=== PATIENT | female | born 1975 | race Caucasian/White ===

== ENCOUNTER → 2022-06-17 10:50 | Outpatient (CLI) | payer OTHER, MEDICAID, SELFPAY ==
[2022-06-17 20:23] LABS: Add Manual Diff / Slide Review NO; Basophils Absolute Auto 100 /uL (0-100); Basophils Percent Auto 0.8 % (0-2); Eosinophils Absolute Auto 300 /uL (0-450); Eosinophils Percent Auto 5.6 % (2-4); Hematocrit 40.1 % (36-46); Hemoglobin 13.5 g/dL (12.0-16.0); Lymphocytes Absolute Auto 2400 /uL (1100-4500); Lymphocytes Percent Auto 38.8 % (25-40); Mean Corpuscular HGB Conc 33.6 % (30-36); Mean Corpuscular Hemoglobin 29.2 PG (26-34); Mean Corpuscular Volume 86.8 fL (80-100); Monocytes Absolute Auto 400 /uL (0-900); Monocytes Percent Auto 7.3 % (3-14); Neutrophils Absolute Auto 2900 /uL (1500-7000); Neutrophils Percent Auto 47.5 % (50-75); Platelet Count 421 X10^3/uL (150-400); Red Blood Cell Count 4.62 X10^6/uL (4.0-5.2); Red Cell Distribution Width 13.9 % (11.6-14.8); White Blood Cell Count 6.1 X10^3/uL (4.5-11.0)
[2022-06-17 21:04] LABS: Alanine Aminotransferase 12 IU/L (<35); Albumin 4.2 g/dL (3.5-5.0); Albumin Globulin Ratio 1.2 (1.0-2.8); Alkaline Phosphatase 63 U/L (38-126); Aspartate Aminotransferase 21 IU/L (14-36); BUN Creatinine Ratio 12.9 (6-22); Bilirubin Total 0.5 mg/dL (0.2-1.3); Blood Urea Nitrogen 11 mg/dL (7-17); Calcium 9.3 mg/dL (8.4-10.2); Carbon Dioxide 24 mmol/L (22-32); Chloride 98 mmol/L (98-107); Cholesterol 256 mg/dL (140-199); Estimated Glomerular Filt Rate > 60 mL/min (>60); Globulin 3.6 g/dL (1.7-4.1); Glucose 85 mg/dL (70-100); HDL Cholesterol 54 mg/dL (40-60); HEMOLYSIS 23 (0-50); LDL Cholesterol Calculated 176 mg/dL (<100); Potassium 4.1 mmol/L (3.4-5.1); Sodium 135 mmol/L (137-145); Total Protein 7.8 g/dL (6.3-8.2); Triglycerides 130 mg/dL (35-150)
[2022-06-17 21:30] LABS: TSH w/ Reflex to FT4 1.63 uIU/mL (0.47-4.68)
== END ==
PROVIDERS: PCP Physician Assistant; Visit Provider Physician Assistant
DX: E78.5 Hyperlipidemia, unspecified (principal); F32.1 Major depressive disorder, single episode, moderate; F41.9 Anxiety disorder, unspecified
CPT/HCPCS: 80053; 80061; 84443; 85025

== ENCOUNTER 2023-01-07 17:02 | Emergency (ER) | payer OTHER, MEDICAID, SELFPAY ==
[2023-01-07] VITALS (20 sets, daily range): BP systolic 128–163; BP diastolic 64–110; PULSE 67–103; RESP 13–21; TEMP 36.7–37.1; O2SAT 91–100; BMI 31.1
--- NOTE | 2023-01-07 17:06 | DI.RAD.S_ITS ---
PROCEDURE: XR WRIST RT MIN 3V INDICATIONS: fall with deformity TECHNIQUE: 4 views of the wrist were acquired. COMPARISON: None. FINDINGS: Bones: There is a comminuted, intra-articular fracture seen of the distal radius, with impaction and dorsal angulation of the fracture fragments in relation to the radial shaft. There is a moderately displaced ulnar styloid fracture seen. No radiocarpal dislocation can be seen. Soft tissues: No suspicious soft tissue calcifications. IMPRESSION: Comminuted distal radius fracture, with impaction, intra-articular involvement, and dorsal angulation of the fracture fragments. A moderately displaced ulnar styloid fracture is also seen. Dictated by: Margarito Acosta M.D. on 01/07/2023 at 16:44 Approved by: Margarito Acosta M.D. on 01/07/2023 at 16:45
--- NOTE | 2023-01-07 17:14 | ED_ITS ---
HPI - General Adult General Chief complaint: Extremity Injury, Upper Stated complaint: R forearm fx Time Seen by Provider: 01/07/23 17:06 History of Present Illness HPI narrative: 47-year-old female with noncontributory medical history is a nonsmoker presents by air medical transport for evaluation of a ground level fall resulting in a right wrist injury. She was in her normal state of health and fell out of the back of a truck onto a right wrist. She has obvious deformity and significant pain with any attempts at range of motion. She denies any numbness, tingling or weakness. She has no head, neck or back pain. She denies any chest pain or shortness of breath. She denies nausea, vomiting or diarrhea. She states she is relatively comfortable when she sits still and has significant pain with attempts at range of motion. She was given fentanyl 100 mcg EN route and splin tiffany by EMS. Related Data Home Medications Medication Instructions Recorded Confirmed selenium sulfide 2.5 % lotion See Rx Instructions topical 2XW 04/20/21 06/24/22 Previous Rx's Medication Instructions Recorded norethindrone 1 mg-ethinyl 1 tab PO DAILY #84 tabs 06/11/22 estradiol 35 mcg tablet (Pirmella) fluoxetine 40 mg capsule See Rx Instructions .Route 12/10/22 .COMPLEX #90 caps hydrocodone 5 mg-acetaminophen 325 1 tab PO Q4-6H PRN pain #30 tabs 01/07/23 mg tablet hydrocodone 5 mg-acetaminophen 325 1 tab PO Q6H PRN pain #10 tabs 01/07/23 mg tablet ondansetron 4 mg disintegrating 4 mg PO TID-QID PRN nausea and 01/07/23 tablet vomiting #10 tabs hydrocodone 5 mg-acetaminophen 325 1 tab PO Q4-6H PRN pain #30 tabs 01/08/23 mg tablet ondansetron 4 mg disintegrating 4 mg PO TID-QID PRN nausea and 01/08/23 tablet vomiting #10 tabs Allergies Allergy/AdvReac Type Severity Reaction Status Date / Time No Known Drug Allergies Allergy Verified 01/07/23 17:52 Review of Systems Review of Systems Narrative: GENERAL: Denies chills, fatigue, malaise, fever, sweats. HEENT: Denies sinus pain, ear pain, sore throat, difficulty swallowing, dizziness. RESPIRATORY: Denies dyspnea, cough, wheezing, hemoptysis, sputum. CARDIOVASCULAR: Denies chest pain, palpitations, orthopnea, edema, GASTROINTESTINAL: Denies nausea, vomiting, abdominal pain, diarrhea, constipation, melena. : Denies dysuria, frequency, incontinence, hematuria, urinary retention. MUSCULOSKELETAL: See HPI SKIN: Denies rash, skin lesions, or other NEUROLOGIC: Denies weakness, headache, numbness, change in speech, confusion, seizures, incoordination. PSYCHIATRIC: No concerning psychosocial issues. 12 point review of systems is negative except for those stated above Patient History Medical History Anxiety Family history of adverse response to anesthesia in sister Hyperlipidemia MDD (major depressive disorder), recurrent episode, mild Nausea Rotator cuff tendonitis Social History Smoking Status: Never smoker Smoking Status: Never smoker Exam Narrative Exam Narrative: GENERAL: [47] year old patient appears stated age. Well-developed patient, in mild distress. HEAD: Atraumatic. Normocephalic. EYES: Pupils equal round and reactive. Extraocular motions intact. No scleral icterus. No injection or drainage. ENT: Nose without bleeding, purulent drainage. Throat without erythema, tonsillar hypertrophy or exudate. Airway patent. NECK: Trachea midline. Non tender CARDIOVASCULAR: Regular rate and rhythm without murmurs, gallops, or rubs. RESPIRATORY: Clear to auscultation. Breath sounds equal bilaterally. No wheezes, rales, or rhonchi. GASTROINTESTINAL: Abdomen soft, non-tender, nondistended. EXTREMITIES: Obvious deformity of right wrist suggestive of distal radius fracture, this is closed, isolated and neurovascularly intact. Forearm compartments are soft, no pain in elbow or shoulder. BACK: Nontender without deformity or crepitance. No flank tenderness. NEURO: AOx3. SKIN: No rash or erythema of visible areas Initial Vital Signs Initial Vital Signs: Vital Signs Temperature 98.1 F 01/07/23 17:05 Pulse Rate 81 01/07/23 17:05 Respiratory Rate 18 01/07/23 17:05 Blood Pressure 154/88 H 01/07/23 17:05 Pulse Oximetry 99 01/07/23 17:05 Oxygen Delivery Method Room Air 01/07/23 17:05 Procedures Orthopedic Fracture Reduction Fracture #1: Time Out Performed: Yes Side: right Fracture Reduction Location: radius and ulna Analgesia: procedural sedation Technique: direct manipulation and traction/counter-traction Orthopedic Splinting/Casting Injury #1: Side: right Upper Extremity Injury Location: wrist Upper Extremity Immobilizer: sling/shoulder immobilizer and sugar tong splint Post splinting neuro exam: intact Post splinting vascular exam: intact Placed by: Provider Procedural Sedation Consent signed: Yes Time out performed: Yes ASA Class: II Mallampati Airway Classification: Class II Preparation: supervisor fertilizer applied, pulse oximeter, capnometry used, supplemental O2 applied, suction/airway equipment at bedside and IV secured IV Propofol dose (mg): 130 Intraservice time/total sedation time (min): 12 ED Sedation Level: Moderate (Concious) Patient Tolerated Procedure: No complications Complications: none Course Orders Ordered: Discontinued Medications Propofol (Propofol 200 Mg/20 Ml Vial) 200 mg IV NOW ONE Stop: 01/07/23 17:07 Last Admin: 01/07/23 18:05 Dose: 130 mg Documented By: [facility] Vital Signs Vital signs: Vital Signs - 8 hr 01/07/23 17:05 Temperature 98.1 F Pulse Rate 81 Respiratory Rate 18 Blood Pressure 154/88 H Pulse Oximetry 99 Oxygen Delivery Method Room Air Medical Decision Making [facility] Narrative Medical decision making narrative: [47] year old patient presents with ground level fall and resultant right wrist injury Multiple etiologies for patient's symptoms considered including, but not limited to: [Fracture, dislocation versus other] Prior Charts reviewed in our EMR Primary Historian: patient Imaging reviewed: Initial x-ray demonstrates comminuted and dorsally angulated as well as impacted right distal radius fracture with ulnar involvement Consultations: Patient's symptoms improved over duration of stay with above-stated therapies. Findings and discharge diagnosis discussed with patient/family followed by verbalization of understanding Return precautions discussed with patient/family whom verbalize understanding of diagnosis and plan Discharge Plan Departure Patient Disposition: Home Clinical Impression: Closed fracture distal radius and ulna Instructions: DI for Distal Radius Fracture Activity Restrictions/Additional Instructions: *You have been diagnosed with [distal radius fracture with comminution and articular involvement] *What to do: *Please continue to take your regular medications as directed. [x ] New medication prescriptions sent to your pharmacy: [[facility] ] [ ] New medication written as a paper prescription [x] Tylenol and occasional Motrin for pain *Please follow up with [Olga ] of [facility] in 2-3 days, call for an appointment. Let them know you were seen in the Emergency Department and that we ask that you be seen in follow up. We will electronically transmit a record of today's note if your PCP is in our system *Return to Emergency Department if you should have any new, worsening or concerning symptoms, such as [worsening pain, significant swelling, cold extremities, numbness, tingling, weakness or other bothersome symptoms Splint Care: Keep splint clean and dry. Elevated affected body part to decrease swelling. OK to use ice pack on the affected body part. Use for 15-20 minutes each time, for 5-6x per day. If you develop worsening pain, numbness, tingling, discoloration of the affected body part, loosen the splint by loosening the MEGHANA wrap, and either see your doctor for an urgent re-assessment, or return to the Emergency Department. Return to the Emergency Department for any new or worsening symptoms. You have been prescribed a short course of narcotic medications. These are potentially dangerous and addictive medications that should be used carefully. While on these medications you cannot drive or operate heavy machinery. Additionally, you cannot sign legal documents or perform any duties such as this. Many people get constipated on narcotic medications so it would be advisable to discuss stool softeners with the pharmacist when you potato picker your prescription. Please understand that we cannot provide further refills of narcotics or controlled substances through the ED and your pain management will need to be through your Primary Care Provider Prescriptions: New hydrocodone-acetaminophen 5-325 mg tablet 1 tab PO Q4-6H PRN (Reason: pain) Qty: 30 0RF ondansetron 4 mg tablet,disintegrating 4 mg PO TID-QID PRN (Reason: nausea and vomiting) Qty: 10 0RF hydrocodone-acetaminophen 5-325 mg tablet 1 tab PO Q6H PRN (Reason: pain) Qty: 10 0RF hydrocodone-acetaminophen 5-325 mg tablet 1 tab PO Q4-6H PRN (Reason: pain) Qty: 30 0RF ondansetron 4 mg tablet,disintegrating 4 mg PO TID-QID PRN (Reason: nausea and vomiting) Qty: 10 0RF No Action selenium sulfide 2.5 % lotion See Rx Instructions TOP 2XW Rx Instructions: 2.5% topical twice a week; Apply topically two times a week Pirmella 1-35 mg-mcg tablet 1 tab PO DAILY Qty: 84 4RF fluoxetine 40 mg capsule See Rx Instructions .ROUTE .COMPLEX Qty: 90 4RF Dose Instruction: TAKE ONE CAPSULE BY MOUTH EVERY DAY Rx Instructions: TAKE ONE CAPSULE BY MOUTH EVERY DAY Referrals: Li Sevilla PA-C [Primary Care Provider] - Constantin Espinoza MD [Physician] - Stand Alone Forms: Patient Portal/API
[2023-01-07] MEDS: propofoL 200 MG/20 ML VIAL IV (18:05)
--- NOTE | 2023-01-07 18:11 | DI.RAD.S_ITS ---
PROCEDURE: XR WRIST RT 2V INDICATIONS: post reduction TECHNIQUE: 2 views of the wrist were acquired. COMPARISON: [facility], CR, XR WRIST RT MIN 3V, 01/07/2023, 17:10. FINDINGS: Bones: Status post splinting of comminuted, displaced distal right radial fracture with intra-articular extension as well as displaced distal ulnar styloid tip fracture. Post reduction alignment appears improved. Soft tissues: No suspicious soft tissue calcifications. IMPRESSION: Status post interval splinting of known comminuted distal right radial fracture and distal ulnar styloid tip fracture in improved alignment. Dictated by: Adonis Mcnally M.D. on 01/07/2023 at 18:48 Approved by: Adonis Mcnally M.D. on 01/07/2023 at 18:49
== END 2023-01-07 19:55 | disposition home or self-care (01) ==
PROVIDERS: Emergency Provider Emergency Medicine; PCP Physician Assistant
DX: S52.501A Unspecified fracture of the lower end of right radius, initial encounter for closed fracture (principal); S52.201A Unspecified fracture of shaft of right ulna, initial encounter for closed fracture; W18.30XA Fall on same level, unspecified, initial encounter
CPT/HCPCS: 25605; 29125; 73100; 73110; 99152; 99284; J2704

== ENCOUNTER 2023-01-13 08:35 | Day surgery (SDC) | payer OTHER, MEDICAID, SELFPAY ==
[2023-01-13] VITALS (10 sets, daily range): BP systolic 150–164; BP diastolic 92–117; PULSE 84–100; RESP 10–17; TEMP 36.4–36.8; O2SAT 88–100; BMI 31.4
[2023-01-13] MEDS: LACTATED RINGERS 1,000 ML 42 ML IV (10:32)
--- NOTE | 2023-01-13 11:50 | PM.PREOP ---
Pre-operative Note Interval Note History & Physical reviewed/Exam performed by Physician: Yes Changes to H&P: No
--- NOTE | 2023-01-13 11:51 | PM.HP.1 ---
History of Present Illness History of Present Illness Date Patient Seen: 01/13/23 Time Patient Seen: 11:40 Chief complaint: ORIF of Right Distal Radius Fx Narrative: 47-year-old female fell getting out of pickup truck landing on her outstretched right arm sustaining displaced intra-articular distal radius fracture. Patient denies any other injuries from fall. [facility] Medical History Anxiety Family history of adverse response to anesthesia in sister Hyperlipidemia MDD (major depressive disorder), recurrent episode, mild Nausea Rotator cuff tendonitis Social History household members: spouse Smoking Status: Never smoker Meds Home Medications and Allergies Home Medications Medication Instructions Recorded Confirmed Type norethindrone 1 mg-ethinyl 1 tab PO DAILY #84 tabs 06/11/22 01/13/23 Rx estradiol 35 mcg tablet (Pirmella) fluoxetine 40 mg capsule See Rx Instructions .Route 12/10/22 01/13/23 Rx .COMPLEX #90 caps hydrocodone 5 mg-acetaminophen 325 1 tab PO Q4-6H PRN pain #30 tabs 01/08/23 01/13/23 Rx mg tablet ondansetron 4 mg disintegrating 4 mg PO TID-QID PRN nausea and 01/08/23 Rx tablet vomiting #10 tabs Allergies Allergy/AdvReac Type Severity Reaction Status Date / Time No Known Drug Allergies Allergy Verified 01/07/23 17:52 Exam Vital Signs (past 8 hours): - 01/13/23 10:27 Temperature 98.3 F Pulse Rate 94 H Respiratory Rate 17 Blood Pressure 160/100 H Pulse Oximetry 100 Oxygen Delivery Method Room Air Oxygen Delivery Method Room Air Narrative Exam Narrative: Patient is in a long-arm splint immobilizing both the elbow wrist. The patient is able flex and extend the fingers. Sensation is intact to light touch. Ulnar median and radial nerve intact to both motor and sensory function. Flexion and extensor mechanisms are intact. Brisk cap refill. No difficulty moving the shoulder. Nontender to palpation of the upper arm. Assessment & Plan Assessment & Plan narrative: Patient with a displaced intra-articular distal radius fracture. Due to the injury I would recommend surgical fixation. Went over the particular risks and limitations associated with the procedure. All of her questions and concerns were answered to her full satisfaction and consent form was freely obtained. The risk, benefits, alternatives, possible complications, operative course, and postop outcomes were discussed. Complications including but not limiting to bleeding, infection, fracture, nerve injury, continued pain postoperatively or instability postoperatively were discussed in detail. Medical complications including but not limited to deep venous thrombosis event, anesthesia complications with excessive bleeding, vascular events or cardiac events and other possible complications were discussed in detail. Need for postoperative rehabilitation and anticipated hospital stay and clinical course were discussed in detail. Patient acknowledges understanding and elects to proceed with surgery.
[2023-01-13] MEDS: CEFAZOLIN 2 GM/100 ML PREMIX 100 ML IV (12:03)
--- NOTE | 2023-01-13 12:31 | SUR.OPER ---
Supine on padded OR bed, head on pillow, right arm secured on wide padded arm board. Left arm secured on padded arm board at <90 degrees abduction, legs uncrossed, safety belt at thigh, tape over blanket over lower legs.
[2023-01-13] MEDS: BUPIVACAINE 0.25% (PF) 30 ML, EPINEPHrine 0.15 MG INJ (13:20)
--- NOTE | 2023-01-13 13:32 | P.OP_ITS ---
Operative Date/Time/Diagnoses Date of procedure: 01/13/23 Time of procedure: 12:15 Pre-op diagnosis: Right intra-articular distal radius fracture Post-op diagnosis: same Procedure & Clinicians Procedure: Open reduction internal fixation of a intra-articular distal radius fracture Same procedure as scheduled: Yes Indications: Comminuted displaced intra-articular distal radius fracture Surgeon: Constantin Espinoza Click Yes if Unassisted: Yes Anesthesia Type: General Operative Notes Findings: Displaced intra-articular distal radius fracture with 3 or more fragments. No sign of any carpal injury. Closure Type: primary Applied: implant(s) (Arthrex distal radius plate) Estimated Blood Loss (mL): 5 Tourniquet time (min): 63 Procedure in detail: On date of service, patient was met in the holding area where the operative site was signed and witnessed by the OR staff. The surgery was once again discussed with the patient and any remaining questions or concerns were answered to the patient's full satisfaction. Time-out was performed verifying patient's name procedure and operative site. Patient was taken back to the operating theater and placed on the operating table in a supine position. Great care was taken to ensure that all bony prominences were appropriately padded. Well-padded tourniquet was placed up along the upper extremity. Another time-out was performed verifying patient's name, procedure, and operative site. The upper extremity was then prepped and draped in the normal sterile fashion. Esmarch was used to exsanguinate the limb and the tourniquet was turned up to 250 mm of mercury. Fifteen blade was used to expose the distal radius. An incision was made over the FCR tendons. The FCR tendon was retracted and the floor of the tendon was opened with a 15 blade. The FPL tendon and muscle belly was retracted ulnarly giving us good visualization of the pronator quadratus. The pronator quadratus was excised off the distal radius using the 15 blade and then finished with a periosteal elevator. Next the brachia radialis attachment to the radial styloid was released to help with overall reduction. Retractors were placed allowing us good visualization of the distal radius as well as the shaft. A reduction eddie uver was performed and a K-wire was placed holding a provisional reduction of the intra-articular distal radius fracture. C-arm was brought in to verify overall reduction. Once we were satisfied with the overall reduction, a plate was placed and held provisionally with K-wires. C-arm was once again used to verify plate positioning as well as reduction. The plate was then fixated to the distal fragment using locking screws. Lateral C-arm views were used to verify that the screws were not intra-articular or broaching the dorsal cortex. At this point we are able to use the plate to help fine tune the overall reduction. Once we were satisfied with the overall reduction the plate was then secured to the shaft with a combination of locking and nonlocking screws. Final x-rays were obtained. The wound was copiously irrigated and closed in a layered fashion. The wrist and hand were cleaned dried dressed. Patient was placed into a splint and taken to the PACU in stable condition. Complications: none Post-operative Condition: stable Disposition: PACU Plan for aftercare: After few days patient can be converted over to a removable splint. There is no restrictions to range of motion of the wrist or the fingers 48 hours after surgery.
[2023-01-13] MEDS: hydrOXYzine pamoate 25 MG CAPSULE PO (13:57)
[2023-01-13] MEDS: ACETAMINOPHEN 325 MG TABLET 650 MG PO (13:58)
[2023-01-13] MEDS: OXYCODONE IR 5 MG TABLET PO (13:58)
== END 2023-01-13 14:57 | disposition home or self-care (01) ==
PROVIDERS: PCP Physician Assistant; Referring Provider Orthopaedic Surgery; Visit Provider Orthopaedic Surgery
PROC: (CPT 25609; principal; 2023-01-13 11:45)
DX: S52.571A Other intraarticular fracture of lower end of right radius, initial encounter for closed fracture (principal); S52.611A Displaced fracture of right ulna styloid process, initial encounter for closed fracture; W01.198A Fall on same level from slipping, tripping and stumbling with subsequent striking against other object, initial encounter
CPT/HCPCS: 25609; C1713; J0171; J0690; J1100; J1170; J2250; J2405; J2704; J3010

== ENCOUNTER → 2023-02-10 10:39 | Outpatient (CLI) | payer OTHER, MEDICAID, SELFPAY ==
[2023-02-10 20:02] LABS: Add Manual Diff / Slide Review NO; Basophils Absolute Auto 100 /uL (0-100); Basophils Percent Auto 0.9 % (0-2); Eosinophils Absolute Auto 300 /uL (0-450); Eosinophils Percent Auto 4.1 % (2-4); Hematocrit 36.5 % (36-46); Hemoglobin 12.5 g/dL (12.0-16.0); Lymphocytes Absolute Auto 2000 /uL (1100-4500); Lymphocytes Percent Auto 29.6 % (25-40); Mean Corpuscular HGB Conc 34.2 % (30-36); Mean Corpuscular Hemoglobin 29.9 PG (26-34); Mean Corpuscular Volume 87.3 fL (80-100); Monocytes Absolute Auto 800 /uL (0-900); Monocytes Percent Auto 11.1 % (3-14); Neutrophils Absolute Auto 3700 /uL (1500-7000); Neutrophils Percent Auto 54.3 % (50-75); Platelet Count 321 X10^3/uL (150-400); Red Blood Cell Count 4.18 X10^6/uL (4.0-5.2); Red Cell Distribution Width 14.6 % (11.6-14.8); White Blood Cell Count 6.8 X10^3/uL (4.5-11.0)
[2023-02-10 20:09] LABS: Alanine Aminotransferase 18 IU/L (<35); Albumin 4.1 g/dL (3.5-5.0); Albumin Globulin Ratio 1.2 (1.0-2.8); Alkaline Phosphatase 55 U/L (38-126); Aspartate Aminotransferase 19 IU/L (14-36); BUN Creatinine Ratio 13.9 (6-22); Bilirubin Total 0.6 mg/dL (0.2-1.3); Blood Urea Nitrogen 11 mg/dL (7-17); Calcium 9.1 mg/dL (8.4-10.2); Carbon Dioxide 22 mmol/L (22-32); Chloride 102 mmol/L (98-107); Cholesterol 208 mg/dL (140-199); Estimated Glomerular Filt Rate > 60 mL/min (>60); Globulin 3.4 g/dL (1.7-4.1); Glucose 94 mg/dL (70-100); HDL Cholesterol 58 mg/dL (40-60); HEMOLYSIS < 15 (0-50); LDL Cholesterol Calculated 120 mg/dL (<100); Potassium 4.4 mmol/L (3.4-5.1); Sodium 132 mmol/L (137-145); Total Protein 7.5 g/dL (6.3-8.2); Triglycerides 151 mg/dL (35-150)
== END ==
PROVIDERS: PCP Physician Assistant; Visit Provider Physician Assistant
DX: Z79.899 Other long term (current) drug therapy (principal); E78.5 Hyperlipidemia, unspecified
CPT/HCPCS: 80053; 80061; 85025

== ENCOUNTER → 2024-01-13 09:04 | Outpatient (CLI) | payer OTHER, SELFPAY ==
[2024-01-13 19:23] LABS: Add Manual Diff / Slide Review NO; Basophils Absolute Auto 0 /uL (0-100); Basophils Percent Auto 0.7 % (0-2); Eosinophils Absolute Auto 300 /uL (0-450); Eosinophils Percent Auto 4.5 % (2-4); Hematocrit 42.9 % (36-46); Hemoglobin 14.4 g/dL (12.0-16.0); Lymphocytes Absolute Auto 2800 /uL (1100-4500); Lymphocytes Percent Auto 40.4 % (25-40); Mean Corpuscular HGB Conc 33.6 % (30-36); Mean Corpuscular Hemoglobin 28.8 PG (26-34); Mean Corpuscular Volume 85.8 fL (80-100); Monocytes Absolute Auto 700 /uL (0-900); Neutrophils Absolute Auto 3100 /uL (1500-7000); Neutrophils Percent Auto 44.4 % (50-75); Platelet Count 381 X10^3/uL (150-400); Red Cell Distribution Width 14.3 % (11.6-14.8); White Blood Cell Count 6.9 X10^3/uL (4.5-11.0)
[2024-01-13 19:56] LABS: Alanine Aminotransferase 37 IU/L (<35); Albumin 4.7 g/dL (3.5-5.0); Albumin Globulin Ratio 1.4 (1.0-2.8); Alkaline Phosphatase 75 U/L (38-126); Aspartate Aminotransferase 33 IU/L (14-36); BUN Creatinine Ratio 16.3 (6-22); Bilirubin Total 0.7 mg/dL (0.2-1.3); Blood Urea Nitrogen 14 mg/dL (7-17); Calcium 9.9 mg/dL (8.4-10.2); Carbon Dioxide 28 mmol/L (22-32); Chloride 101 mmol/L (98-107); Cholesterol 256 mg/dL (140-199); Estimated Glomerular Filt Rate > 60 mL/min (>60); Globulin 3.4 g/dL (1.7-4.1); Glucose 90 mg/dL (70-100); HDL Cholesterol 58 mg/dL (40-60); HEMOLYSIS < 15 (0-50); LDL Cholesterol Calculated 172 mg/dL (<100); Potassium 4.2 mmol/L (3.4-5.1); Sodium 136 mmol/L (137-145); Total Protein 8.1 g/dL (6.3-8.2); Triglycerides 129 mg/dL (35-150)
[2024-01-13 20:25] LABS: TSH w/ Reflex to FT4 1.95 uIU/mL (0.47-4.68)
[2024-01-13 20:57] LABS: Hemoglobin A1C% w Est Avg Glu 5.7 % (4.0-6.0)
== END ==
PROVIDERS: PCP Physician Assistant; Visit Provider Physician Assistant
DX: E78.5 Hyperlipidemia, unspecified (principal); F41.9 Anxiety disorder, unspecified; Z79.899 Other long term (current) drug therapy; R03.0 Elevated blood-pressure reading, without diagnosis of hypertension; Z11.59 Encounter for screening for other viral diseases
CPT/HCPCS: 80053; 80061; 83036; 84443; 85025